=== PATIENT | female | born 1970 | race Caucasian/White ===

== ENCOUNTER 2016-12-04 05:41 | Day surgery (SDC) ==
[2016-11-29 15:05] LABS: URINE MICRO REVIEW NEEDED? NO; URINE SOURCE CLEAN CATCH
[2016-11-29 15:17] LABS: HEMATOCRIT 41.3 % (37.0-47.0); MCH 29.5 PG (27-31); MCHC 33.9 g/dL (33-37); MCV 86.9 FL (81-99); MPV 10.3 FL (7.4-10.4); RBC 4.75 XMIL (4.2-5.4)
[2016-11-29 15:23] LABS: BILIRUBIN URINE NEGATIVE (NEGATIVE); BLOOD URINE MODERATE (NEGATIVE); COLOR ORANGE; GLUCOSE URINE NEGATIVE (NEGATIVE); LEUKOCYTES URINE NEGATIVE (NEGATIVE); NITRITE URINE NEGATIVE (NEGATIVE); PH URINE 5.5; PROTEIN URINE NEGATIVE (NEGATIVE); SP GRAVITY URINE 1.007; TURBIDITY URINE HAZY (CLEAR); UR EPITHELIAL CELLS <10 /HPF (<10); URINE BACTERIA 1+ /HPF; URINE WBC <10 /HPF (<10); UROBILINOGEN URINE NORMAL (NORMAL)
[2016-11-29 15:43] LABS: ALBUMIN 4.7 g/dL (3.5-5.0); CALCIUM 9.2 mg/dL (8.8-10.2); POTASSIUM 4.4 mmol/L (3.5-5.1); TOTAL BILIRUBIN 0.82 mg/dL (0.20-1.00); TOTAL PROTEIN 7.4 g/dL (6.3-8.3)
--- NOTE | 2016-11-29 16:01 | Diag Imaging Result Document ---
PROCEDURE NAME: CHEST-2 VIEWS - 11/29/2016 PA AND LATERAL RADIOGRAPH OF THE CHEST: COMPARISON: None available. FINDINGS: The lungs are grossly clear. There is no discrete pleural fluid collection or evidence of pneumothorax. The cardiomediastinal silhouette and upper airway are grossly unremarkable. IMPRESSION: No evidence of acute chest pathology.
[2016-12-04] MEDS ORDERED: METHYLENE BLUE 1% ONE (06:22)
[2016-12-04] MEDS ORDERED: BACITRACIN ONE (06:23)
[2016-12-04] MEDS ORDERED: NS 1,000 ML ONE (06:23)
[2016-12-04] MEDS ORDERED: LOVENOX ONE (06:37)
[2016-12-04] MEDS ORDERED: REGLAN ONE (06:37)
[2016-12-04] MEDS ORDERED: TRANSDERM-SCOP ONE (06:37)
[2016-12-04] MEDS ORDERED: KEFZOL 2 GM/D5W 50 ML ONE (06:37)
[2016-12-04] MEDS ORDERED: PEPCID ONE (06:37)
[2016-12-04] MEDS ORDERED: VALIUM ONE (06:48)
[2016-12-04] MEDS ORDERED: LR 1,000 ML ONE ×2 (06:57→12:10)
[2016-12-04] MEDS ORDERED: ANUSOL-HC CREAM PR ONE (07:30)
[2016-12-04 08:05] LABS: URINE MICRO REVIEW NEEDED? NO; URINE SOURCE CATH
[2016-12-04 08:17] LABS: BILIRUBIN URINE NEGATIVE (NEGATIVE); BLOOD URINE NEGATIVE (NEGATIVE); COLOR YELLOW; GLUCOSE URINE NEGATIVE (NEGATIVE); LEUKOCYTES URINE NEGATIVE (NEGATIVE); NITRITE URINE NEGATIVE (NEGATIVE); PROTEIN URINE NEGATIVE (NEGATIVE); SP GRAVITY URINE 1.007; TURBIDITY URINE CLEAR (CLEAR); UROBILINOGEN URINE NORMAL (NORMAL)
[2016-12-04 08:28] LABS: UR EPITHELIAL CELLS <10 /HPF (<10); URINE BACTERIA NEGATIVE /HPF; URINE RBC <10 /HPF (<10); URINE WBC <10 /HPF (<10)
--- NOTE | 2016-12-04 10:23 | OPERATIVE NOTE ---
PROCEDURE DATE: 12/04/2016 PREOPERATIVE DIAGNOSIS: Left breast cancer. POSTOPERATIVE DIAGNOSIS: Left breast cancer. PRINCIPAL PROCEDURE: 1. Left modified radical mastectomy. 2. Injection of periareolar blue dye for identification of left axillary sentinel lymph node. SURGEON: Carmen Encarnacion MD. WELFARE ELIGIBILITY INTERVIEWER: Charlotte Mckenna RN. ANESTHESIA: General. ESTIMATED BLOOD LOSS: 75 mL. DRAINS: Per Dr. Cartwright. INDICATIONS: Ms. Gema Mondragon is a 46-year-old, white female who noticed a change in her left breast nipple. Mammograms were worrisome. I saw her in our outpatient offices and under ultrasound guidance, we did a core needle biopsy which documented left breast cancer. We discussed surgical treatment options and she chose a left total mastectomy with immediate plastic reconstruction. FINDINGS: The tumor involved the central area of the breast including the nipple. There was some retraction of the nipple. Clinically, we could not feel any enlarged left axillary lymph nodes. However, during the procedure, I palpated some hard left axillary lymph nodes which I felt were probably involved with tumor and so I proceeded with a completion left axillary lymph node dissection. We did not send any sentinel nodes for frozen because of my physical exam during surgery of the left axilla. I felt we did a clean mastectomy and we did a thorough axillary dissection. We identified the long thoracic and thoracodorsal nerves, and preserved them throughout. The tumor did not involve the pectoralis major muscle. There were no lymph nodes noted that were matted together. DESCRIPTION OF PROCEDURE: The patient underwent injection by nuclear medicine of radioactive colloid prior to surgery. She was then brought to the operating room, and positioned and draped per Dr. Cartwright, our plastic surgeon. He had marked my left breast incision for mastectomy which included the left breast nipple and areola. It also included the central skin of the left breast. That incision was made with a 10 blade scalpel. I used cautery to create our flaps. We created the superior flap to the clavicle, the medial flap to the sternum, and the inferior flap to the inframammary fold. We then removed the breast from medial to lateral off the pectoralis major muscle. We used cautery for most dissections. We used hemostats and 4-0 and 3-0 silk ties as needed. I then used the Navigator to help identify sentinel node. We also had some blue nodes because I injected periareolar blue dye prior to proceeding with the mastectomy. I injected about 3 mL of methylene blue. However, during palpation of the axilla, I felt some hard lymph nodes which I felt were probably involved with tumor and therefore proceeded with a completion left axillary lymph node dissection and did not send any sentinel nodes for frozen. We took the axillary tissue off the lateral aspect of the pectoralis major and minor muscles, and preserved the nerve to the pectoralis muscles. We went down on the serratus anterior and again most of this dissection, we used the cautery. Laterally, we identified the latissimus dorsi muscle and then identified the axillary vein superiorly. We took some branches off the axillary vein and dissected our axilla from superior to inferior. We used hemostats and 3-0 and 4-0 silk ties. We made a clean dissection between the 2 nerves of the axillary contents. We removed the left breast and axillary contents in their entirety, and sent them to the pathologist for permanent section. We thoroughly irrigated out our operative site. Any bleeding was controlled using the cautery or small clips. She tolerated this part of the operation well. Dr. Cartwright was notified and he will begin with the immediate reconstruction.
[2016-12-04] MEDS: KEFZOL 1 GM/D5W 50 ML ONE ×2 (11:03→11:20)
[2016-12-04] MEDS ORDERED: PHENERGAN ONE (12:06)
[2016-12-04] MEDS ORDERED: DEMEROL PCA VIAL ONE (12:41)
[2016-12-04] MEDS ORDERED: DEMEROL ONE (12:47)
[2016-12-04] MEDS ORDERED: FENTANYL ONE (13:01)
[2016-12-04] MEDS ORDERED: DIPRIVAN 1% ONE (13:01)
[2016-12-04] MEDS ORDERED: LUBRIFRESH PM OPH OINTMENT ONE (13:12)
[2016-12-04] MEDS ORDERED: NEOSTIGMINE ONE (13:12)
[2016-12-04] MEDS ORDERED: NORCURON ONE (13:13)
[2016-12-04] MEDS ORDERED: ZOFRAN ONE (13:13)
[2016-12-04] MEDS ORDERED: EPHEDRINE ONE (13:13)
[2016-12-04] MEDS ORDERED: QUELICIN (DOSE) ONE (13:14)
[2016-12-04] MEDS ORDERED: ROBINUL ONE (13:14)
[2016-12-04] MEDS ORDERED: XYLOCAINE-MPF 2% ONE (13:14)
[2016-12-04] MEDS ORDERED: DECADRON ONE (13:14)
[2016-12-04] MEDS ORDERED: LR 4,000 ML ONE (13:14)
[2016-12-04] MEDS ORDERED: NARCAN 0.4 MG in LR 1,000 ML IV PRN (14:04)
[2016-12-04] MEDS ORDERED: NARCAN IV PRN (14:04)
[2016-12-04] MEDS ORDERED: DEMEROL PCA VIAL IV PRN (14:04)
[2016-12-04] MEDS ORDERED: ZOFRAN IV PRN (14:04)
[2016-12-04] MEDS ORDERED: PHENERGAN PO PRN (14:07)
[2016-12-04] MEDS: KEFZOL 1 GM/D5W 50 ML IV SCH (19:00)
[2016-12-04] MEDS: LR 1,000 ML IV SCH (20:56)
[2016-12-04] MEDS: PERIDEX MT SCH (20:56)
[2016-12-05] MEDS: LR 1,000 ML IV SCH ×3 (03:28→11:37)
[2016-12-05] MEDS: KEFZOL 1 GM/D5W 50 ML IV SCH ×2 (03:32→10:01)
--- NOTE | 2016-12-05 04:07 | OPERATIVE NOTE ---
PROCEDURE DATE: 12/04/2016 PROCEDURE PERFORMED: Left breast reconstructive tissue aviation neuropsychologist placement after left mastectomy. SURGEON: Dr. Cezar Cartwright. CODE: The ICD 10 diagnosis code for this case is Z85.35, personal history of breast cancer, and N64.89, deformity of the breast. INDICATIONS FOR PROCEDURE: This patient is a 46-year-old, white female who was recently diagnosed with a breast cancer on the left side. She is being cared for by Dr. Encarnacion and because of retraction of the nipple and the location of the lesion, she is not a candidate for breast conservation surgery. She needs a mastectomy. She understands this and was seen in the office for informed consent for the procedure on 11/29/2016. At that point, she understood that she would have a breast tissue aviation neuropsychologist placed which is the first stage of a planned 2 stage procedure. She understands there will be a period of time where she will not have optimal breast shape because with the expansion process, it is impossible to match her ptotic breast on the right side. She understood that exact bra cup size changes and breast shape cannot be guaranteed. She knows the risks including infection, blood loss, blood clots in legs, heart problems, lung problems, allergic reactions, or blood and serum collections in the operative sites that might require drainage. She understands that she is going to have a tissue aviation neuropsychologist in place to reconstruct her breast and this has a magnet in it so during the time that she has the aviation neuropsychologist in, she cannot have MRI scans for any reason. She understands the exact size and shape cannot be guaranteed. She knows she will have a horizontal skin incision and that in the future, we might have to do a breast lifting procedure on the right side for symmetry. She knows where scars are going to be. DESCRIPTION OF PROCEDURE: The patient was brought to the operating room after she was marked in outpatient surgery in the sitting position. She went to the operating room, had general anesthesia, and the lerma were remarked, and then prepped and draped for Dr. Encarnacion. He proceeded to do the mastectomy and then a lymph node dissection. When he was completed, a submuscular dissection was done by splitting the pectoralis minor muscle, dissecting under the pectoralis major muscle and the serratus muscle, and preparing a pocket for a tissue aviation neuropsychologist. She fit a 500 mL tissue aviation neuropsychologist well. Drains were placed in the pocket. She had to have a dermal graft placed in 2 areas on the inferior muscle where there was a rent to make a watertight closure. This dermal graft was taken from the medial side of the breast specimen. Two drains were placed around the implant, one behind it and one in front of it. Then the muscle was closed with 3-0 Polysorb interrupted sutures. Drains were then placed under the skin flaps and a 7 mm drain was placed up into the axillary node dissection, being careful not to lay on the vessels. The skin was closed. She tolerated this procedure well. She was transported to the recovery room in good condition.
[2016-12-05] MEDS: PERIDEX MT SCH (10:01)
[2016-12-05 11:11] VITALS: BP 110/63
[2016-12-05] MEDS: NORCO-10 PO PRN ×2 (11:45→12:28)
[2016-12-05] MEDS ORDERED: LOVENOX SUBQ ONE (12:43)
--- NOTE | 2016-12-06 11:06 | DISCHARGE SUMMARY ---
ADMISSION DATE: 12/04/2016 DISCHARGE DATE: 12/05/2016 ADMISSION DIAGNOSIS: Left breast cancer. DISCHARGE DIAGNOSIS: Left breast cancer. HOSPITAL COURSE: The patient was admitted to the hospital via outpatient surgery where preoperative lerma were made for a left mastectomy which was performed by Dr. Encarnacion along with an axillary node dissection and I performed a submuscular breast tissue lavender farm worker reconstruction. She had [address] She has done well on the floor. She is not nauseated. She is voiding. She is taking p.o. Her pain control is adequate on [place]. I have written her prescriptions for her as an outpatient which were [place] for pain, Keflex for antibiotic, and Phenergan for nausea. They know how to take care of drains. She will be discharged with an incentive spirometer. I am giving her 1 dose of Lovenox 40 mg subcu prior to discharge for DVT prophylaxis. I will see her in the office tomorrow for dressing change and drain monitoring.
== END 2016-12-05 14:28 | disposition home or self-care (01) ==
LOC: OPS 05:41 → EDSTATUS 07:30 → UNDOADMOB 13:43 → 4N 13:43 → OPS 12-05 14:28 → UNDODISOB 12-05 14:28
PROVIDERS: ATTEND Surgery
DX: D05.12 Intraductal carcinoma in situ of left breast (principal); Z87.891 Personal history of nicotine dependence
CPT/HCPCS: 38792; 71020; 80053; 81001; 85027; 88309; 94761; 94799; A9520; C1789; J0330; J0690; J1100; J1650; J2175; J2405; J2550; J3010; J7030; J7120; Q9968; J2710